=== PATIENT | male | born 1970 | race African-American/Black ===

== ENCOUNTER 2024-03-08 01:48 | Inpatient (IN) | payer OTHER ==
[~2024-03-08] VITALS: Ht 182.9 cm; Wt 113.9 kg
[2024-03-08 02:58] LABS: BASOPHILS % 0.5 % (0.0-2.0); DIFFERENTIAL COMMENT 0; EOSINOPHILS % 5.6 % (0.0-5.0); HEMATOCRIT. 43.8 % (42.0-52.0); HEMOGLOBIN. 14.5 g/dL (14.0-18.0); LYMPHOCYTES % 25.8 % (20.0-50.0); MEAN CORPUSCULAR HEMOGLOBIN 30.8 pg (28.0-32.0); MEAN CORPUSCULAR HGB CONC 33.2 g/dL (31.0-37.0); MEAN CORPUSCULAR VOLUME 92.9 fL (80.0-94.0); MEAN PLATELET VOLUME 9.3 fl (7.4-10.4); MONOCYTES % 11.8 % (2.0-8.0); NEUTROPHILS % 56.3 % (40.0-76.0); PLATELET 233 x1000/uL (130-400); RED BLOOD CELL COUNT 4.72 mill/uL (4.7-6.1); RED CELL DISTRIBUTION WIDTH 13.7 % (11.6-14.6); WHITE BLOOD COUNT 6.8 x1000/uL (4.5-11.0)
[2024-03-08 03:20] LABS: CHLORIDE 113 mEq/L (98-107); POTASSIUM 4.2 mEq/L (3.5-5.1); SODIUM 144 mEq/L (136-145)
[2024-03-08 03:21] LABS: CARBON DIOXIDE 22 mEq/L (21-32)
[2024-03-08 03:22] LABS: CALCIUM 8.9 mg/dL (8.7-10.4)
[2024-03-08 03:26] LABS: CREATININE 1.5 mg/dL (0.6-1.3); GLUCOSE 101 mg/dL (70-105)
[2024-03-08 03:27] LABS: TROPONIN I HIGH SENSITIVITY 9 ng/L (3.0-53); UREA NITROGEN BLOOD 20 mg/dL (9-23)
[2024-03-08 04:34] LABS: PARTIAL THROMBOPLASTIN TIME 26.9 sec (23.4-31.0); PROTHROMBIN TIME 11.2 sec (9.6-11.0)
[2024-03-08] MEDS: HYDRALAZINE 20MG/ML VIAL IV ONE (05:37)
[2024-03-08 05:54] LABS: TROPONIN I HIGH SENSITIVITY 9 ng/L (3.0-53)
[2024-03-08] MEDS: IOHEXOL-350 100 ML BOTTLE ONE (07:31)
[2024-03-08 08:00] VITALS: BP 169/110; PULSE 67; RESP 18; TEMP 36.22512; O2SAT 97
[2024-03-08] MEDS ORDERED: MAGNESIUM/ALUMINUM HYDROXIDE/SIMETHICONE 30ML UDC PO PRN (08:00)
[2024-03-08] MEDS ORDERED: ACETAMINOPHEN 325MG TABLET PO PRN (08:00)
[2024-03-08] MEDS ORDERED: ONDANSETRON HCL 4MG/2ML INJ IV PRN (08:00)
[2024-03-08] MEDS ORDERED: NITROGLYCERIN 0.4MG TABLET SL SL PRN (08:00)
[2024-03-08] MEDS ORDERED: GUAIFENESIN 200MG/10ML SUGAR FREE UDC PO PRN (08:00)
[2024-03-08] MEDS ORDERED: IPRATROPIUM/ALBUTEROL 0.5-3(2.5)MG/3ML NEB HHN PRN (08:00)
[2024-03-08] MEDS ORDERED: DOCUSATE SODIUM 100MG CAPSULE PO PRN (08:00)
[2024-03-08] MEDS: PANTOPRAZOLE SODIUM 40 MG/VIAL IV SCH (09:41)
[2024-03-08] MEDS: HYDRALAZINE HCL 50MG TABLET PO SCH (09:42)
[2024-03-08 10:15] LABS: TRIGLYCERIDE 59 mg/dL (0-150)
[2024-03-08 10:16] LABS: LDL CHOLESTEROL 143 mg/dL (5-100)
[2024-03-08 10:17] LABS: ALANINE AMINOTRANSFERASE 19 IU/L (10-49); ALBUMIN 4.1 g/dL (3.2-4.8); ASPARTATE AMINOTRANSFERASE 18 IU/L (<34); BILIRUBIN DIRECT 0.2 mg/dL (<=3.0); BILIRUBIN TOTAL 0.7 mg/dL (0.1-1.0); CHOLESTEROL 209 mg/dL (<200); HDL CHOLESTEROL 46 mg/dL (>55)
[2024-03-08 10:18] LABS: PROTEIN TOTAL 6.4 g/dL (6.0-8.3); T4 FREE 1.29 ng/dL (0.89-1.76)
[2024-03-08 10:19] LABS: THYROID STIMULATING HORMONE 1.26 uIU/mL (0.55-4.78)
[2024-03-08] MEDS ORDERED: HYDRALAZINE 20MG/ML VIAL IV PRN (10:45)
[2024-03-08] MEDS: CLONIDINE 0.1MG TABLET PO PRN (10:53)
[2024-03-08] MEDS: ACETAMINOPHEN 325MG TABLET PO PRN (10:54)
[2024-03-08 11:01] VITALS: BP 180/114; PULSE 74; RESP 20; TEMP 36.418
[2024-03-08 12:00] VITALS: BP 166/107; PULSE 66; RESP 20; TEMP 36.22512; O2SAT 98
[2024-03-08] MEDS: HYDRALAZINE HCL 25MG TABLET PO SCH (13:45)
[2024-03-08] MEDS: AMLODIPINE 10MG TABLET PO SCH (14:09)
[2024-03-08] MEDS: LOSARTAN 25 MG TABLET PO SCH (14:09)
[2024-03-08 16:00] VITALS: BP 159/99; PULSE 71; RESP 20; TEMP 36.16956; O2SAT 98
[2024-03-08] MEDS: ATORVASTATIN CALCIUM 40MG TABLET PO SCH (21:36)
[2024-03-08] MEDS: SODIUM CHLORIDE 0.9% 1,000 ML IV SCH (21:36)
[2024-03-08 23:27] VITALS: BP 152/98; PULSE 75; RESP 20; TEMP 36.72516; O2SAT 68
[2024-03-08 23:59] VITALS: BP 147/76; PULSE 77; RESP 18; TEMP 36.55848; O2SAT 75
[2024-03-09 04:00] VITALS: BP 145/69; PULSE 75; RESP 19; TEMP 36.78072; O2SAT 95
[2024-03-09 06:32] LABS: CLARITY URINE CLEAR (CLEAR); COLOR URINE YELLOW (YELLOW); GLUCOSE URINE NEGATIVE (NEGATIVE); KETONES URINE NEGATIVE (NEGATIVE); LEUKOCYTE ESTERASE URINE NEGATIVE (NEGATIVE); NITRITE URINE NEGATIVE (NEGATIVE); OCCULT BLOOD URINE NEGATIVE (NEGATIVE); PROTEIN URINE NEGATIVE (NEGATIVE); SPECIFIC GRAVITY URINE 1.016 (1.005-1.030); UROBILINOGEN URINE 0.2 E.U./dL (0.2-1.0)
[2024-03-09 06:48] LABS: BASOPHILS % 0.7 % (0.0-2.0); DIFFERENTIAL COMMENT 0; EOSINOPHILS % 5.5 % (0.0-5.0); HEMATOCRIT. 46.2 % (42.0-52.0); HEMOGLOBIN. 15.4 g/dL (14.0-18.0); LYMPHOCYTES % 29.1 % (20.0-50.0); MEAN CORPUSCULAR HEMOGLOBIN 31.1 pg (28.0-32.0); MEAN CORPUSCULAR HGB CONC 33.5 g/dL (31.0-37.0); MEAN PLATELET VOLUME 9.6 fl (7.4-10.4); MONOCYTES % 10.8 % (2.0-8.0); NEUTROPHILS % 53.9 % (40.0-76.0); PLATELET 227 x1000/uL (130-400); RED BLOOD CELL COUNT 4.96 mill/uL (4.7-6.1); RED CELL DISTRIBUTION WIDTH 13.9 % (11.6-14.6); WHITE BLOOD COUNT 5.4 x1000/uL (4.5-11.0)
[2024-03-09 06:49] LABS: CARBON DIOXIDE 27 mEq/L (21-32); CHLORIDE 106 mEq/L (98-107); POTASSIUM 3.9 mEq/L (3.5-5.1); SODIUM 140 mEq/L (136-145)
[2024-03-09 06:50] LABS: CALCIUM 9.5 mg/dL (8.7-10.4)
[2024-03-09 06:53] LABS: TROPONIN I HIGH SENSITIVITY 9 ng/L (3.0-53)
[2024-03-09 06:54] LABS: CREATININE 1.3 mg/dL (0.6-1.3)
[2024-03-09 06:55] LABS: GLUCOSE 92 mg/dL (70-105); UREA NITROGEN BLOOD 13 mg/dL (9-23)
[2024-03-09 07:08] LABS: *AMPHETAMINES SCREEN URINE NEGATIVE (NEGATIVE)
[2024-03-09 07:10] LABS: *BARBITURATES SCREEN URINE NEGATIVE (NEGATIVE); *BENZODIAZEPINES SCREEN URINE NEGATIVE (NEGATIVE); *COCAINE SCREEN URINE NEGATIVE (NEGATIVE)
[2024-03-09 07:11] LABS: CANNABINOID URINE SCREEN NEGATIVE (NEGATIVE); ECSTASY MDMA SCREEN URINE NEGATIVE (NEGATIVE); METHADONE URINE SCREEN NEGATIVE (NEGATIVE); OPIATES URINE SCREEN NEGATIVE (NEGATIVE); PHENCYCLIDINE URINE SCREEN NEGATIVE (NEGATIVE)
[2024-03-09 08:00] VITALS: BP 152/108; PULSE 72; RESP 18; TEMP 37.00296; O2SAT 99
[2024-03-09] MEDS: ASPIRIN 81MG TABLET PO SCH (09:18)
[2024-03-09 10:13] VITALS: BP 130/91; PULSE 81; TEMP 97.3; O2SAT 100
== END 2024-03-09 10:45 | disposition home or self-care (01) | DRG 311 ==
LOC: ER 01:48 → 7WST 05:30 → EDBEDREQ 05:38 → EDBEDREQTM 05:38
PROVIDERS: ADMIT Internal Medicine; ATTEND Internal Medicine
DX: I20.0 Unstable angina (principal); I16.9 Hypertensive crisis, unspecified; E78.5 Hyperlipidemia, unspecified; E66.01 Morbid (severe) obesity due to excess calories; Z79.82 Long term (current) use of aspirin; Z79.899 Other long term (current) drug therapy; Z82.49 Family history of ischemic heart disease and other diseases of the circulatory system; Z68.34 Body mass index [BMI] 34.0-34.9, adult
CPT/HCPCS: 36415; 71045; 71275; 80048; 80061; 80076; 80305; 81003; 83735; 83880; 84439; 84443; 84484; 85025; 93005; 99291; A4606; A4663; J0360; J2470; J7030; Q9967